=== PATIENT | female | born 1995 | race Two or more races ===

== ENCOUNTER → 2023-10-19 | Outpatient (CLI) | payer OTHER | END | disposition home or self-care (01) | LOC: PRENATAL 10:16 | PROVIDERS: ATTEND Obstetrics & Gynecology Maternal & Fetal Medicine | DX: O36.80X0 Pregnancy with inconclusive fetal viability, not applicable or unspecified (principal); Z36.82 Encounter for antenatal screening for nuchal translucency; Z36.9 Encounter for antenatal screening, unspecified; Z14.8 Genetic carrier of other disease; Z3A.13 13 weeks gestation of pregnancy ==

== ENCOUNTER 2023-12-03 08:38 | Outpatient (CLI) | payer OTHER | END 2023-12-03 08:42 | disposition home or self-care (01) | LOC: PRENATAL 08:38 | PROVIDERS: ATTEND Obstetrics & Gynecology Maternal & Fetal Medicine | DX: O35.9XX0 Maternal care for (suspected) fetal abnormality and damage, unspecified, not applicable or unspecified (principal); O35.3XX0 Maternal care for (suspected) damage to fetus from viral disease in mother, not applicable or unspecified; O44.00 Complete placenta previa NOS or without hemorrhage, unspecified trimester; Z3A.19 19 weeks gestation of pregnancy ==

== ENCOUNTER 2024-04-17 13:15 | Outpatient (CLI) | payer OTHER ==
[2024-04-17] MEDS ORDERED: RINGERS SOLUTION,LACTATED 1,000 ML IV SCH (14:00)
[2024-04-17] MEDS ORDERED: AMPICILLIN TRI500 MG PO (14:01)
[2024-04-17 14:25] LABS: URINE APPEARANCE Cloudy; URINE BILIRRUBIN Negative (NEGATIVE); URINE BLOOD Negative; URINE COLOR Yellow; URINE GLUCOSE Negative (NEGATIVE); URINE LEUKOCYTE Small; URINE NITRATE Negative; URINE PROTEIN Trace (NEGATIVE)
[2024-04-17 14:29] LABS: URINE EPITHELIAL CELLS 150.2 uL (0.0-38.8); URINE RBC 18.1 uL (0.0-20.8); URINE WBC 37.8 uL (0.0-23.2)
[2024-04-17 14:44] LABS: HEMATOCRIT 33.1 % (36.0-45.00); MEAN CELL VOLUME 83.9 fL (80.00-100.00); MEAN CORPUSCULAR HEMOGLOBIN 27.8 pg (27.00-32.0); MEAN CORPUSCULAR HGB CONC 33.1 g/dl (32.0-36.0); RED BLOOD COUNT 3.94 M/uL (4.00-6.00); RED CELL DISTRIBUTION WIDTH 14.8 % (11.5-14.5)
[2024-04-17 14:45] LABS: PLATELET COUNT 182 K/uL (150-450)
[2024-04-17 14:53] LABS: URINE YEAST FEW /hpf
[2024-04-17] MEDS ORDERED: CITRIC ACID/SODIUM CITRATE 30 ML BLIST.PACK PO ONE (22:30)
[2024-04-20] MEDS ORDERED: AMPICILLIN SOD500 MG PO (17:40)
[2024-04-23] MEDS ORDERED: IBUPROFEN800 MG PO (09:53)
== END 2024-04-18 16:15 | disposition home or self-care (01) ==
LOC: OBS/DEL 13:15
PROVIDERS: Obstetrics & Gynecology; ATTEND Obstetrics & Gynecology
DX: O26.893 Other specified pregnancy related conditions, third trimester (principal); Z3A.39 39 weeks gestation of pregnancy